=== PATIENT | male | born 1995 | race Two or more races ===

== ENCOUNTER 2018-04-26 11:59 | Emergency (ER) | payer SELFPAY ==
[2018-04-26 12:04] VITALS: BP 135/79; PULSE 112; TEMP 101; BMI 23.7
[2018-04-26] MEDS ORDERED: PENICILLIN G BENZATHINE 1,200,000 UNIT/2 ML PFS IM ONE (12:20)
[2018-04-26] MEDS ORDERED: DEXAMETHASONE LIQUID 0.5 MG/5 ML 240 ML BULK BOTTLE PO ONE (12:20)
--- NOTE | 2018-04-26 12:23 | PDOC ---
History of Present Illness - General Chief Complaint: Sore Throat Stated Complaint: SORE THROAT Time Seen by Provider: 04/26/18 12:08 - History of Present Illness Initial Comments: 04/26/18 12:20 22-year-old male without comorbidities presents for evaluation of fever and sore throat 2 days. Past History - Past Medical History Allergies/Adverse Reactions: Allergies Allergy/AdvReac Type Severity Reaction Status Date / Time No Known Allergies Allergy Verified 04/26/18 12:01 Home Medications: Ambulatory Orders No Home Medications 0 dose .ROUTE UTDICT 05/17/12 COPD: No - Immunization History Immunization Up to Date: Yes - Suicide/Smoking/Psychosocial Hx Smoking Status: No Smoking History: Current some day smoker Number of Cigarettes Smoked Daily: 0 Information on smoking cessation initiated: No Hx Alcohol Use: No Drug/Substance Use Hx: No Review of Systems - Review of Systems Constitutional: Yes: Fever HEENTM: Yes: Throat Pain, Difficulty Swallowing *Physical Exam - Vital Signs Last Vital Signs Temp Pulse Resp BP Pulse Ox 101 F H 112 H 18 135/79 98 04/26/18 12:01 04/26/18 12:01 04/26/18 12:01 04/26/18 12:01 04/26/18 12:01 - Physical Exam Comments: 04/26/18 12:21 HEAD: NC/AT EYES: Conjuntiva clear Ears: Canals and TM's normal NOSE: No d/c THROAT: Moist mucous membrances, oral pharanx erythematous with exudate, uvula midline NECK: Supple without adenopathy CARDIAC: S1 S2 LUNGS: CTA Full and Equal breath sounds ABDOMEN: Soft NT ND MS: Full ROM in all joints without edema NEUROLOGIC: No gross sensory or motor deficits, NVID SKIN: Normal color and temperature no lesions or rashes Moderate Sedation - Procedure Monitoring Vital Signs: Procedure Monitoring Vital Signs Temperature 101 F H 04/26/18 12:01 Pulse Rate 112 H 04/26/18 12:01 Respiratory Rate 18 04/26/18 12:01 Blood Pressure 135/79 04/26/18 12:01 O2 Sat by Pulse Oximetry (%) 98 04/26/18 12:01 *DC/Admit/Observation/Transfer Diagnosis at time of Disposition: Strep pharyngitis - Discharge Dispostion Disposition: HOME Condition at time of disposition: Stable Decision to Admit order: No - Referrals Referrals: Estefani Parker MD [Staff Physician] - - Patient Instructions Printed Discharge Instructions: Strep Throat, DI for Strep Throat Additional Instructions: Return to the emergency room for worsening of symptoms. Follow-up with internal medicine in one to 2 days for further evaluation and treatment options. Warm salt water gargles will help with her throat pain. Do not take any anti- inflammatory such as Advil Motrin Aleve or ibuprofen. He will given a dose of a long-acting steroid which should prevent the fever and help with her pain within the next day. He may take Tylenol as directed for fever and pain. - Post Discharge Activity
[2018-04-26] MEDS ORDERED: DEXAMETHASONE SOD PHOSPHATE 10 MG/1 ML VIAL ONE (12:25)
[2018-04-26] MEDS ORDERED: PENICILLIN G BENZATHINE 2,400,000 UNIT/4 ML PFS ONE (12:26)
[2018-04-26] MEDS ORDERED: ACETAMINOPHEN 500 MG TABLET (FP) PO ONE (12:29)
[2018-04-26] MEDS ORDERED: ACETAMINOPHEN 500 MG TABLET (FP) ONE (12:32)
== END 2018-04-26 13:02 | disposition home or self-care (01) ==
LOC: JERFT 11:59
DX: J02.0 Streptococcal pharyngitis (principal)
CPT/HCPCS: 99281-25

== ENCOUNTER 2019-03-03 13:11 | Emergency (ER) | payer OTHER ==
[2019-03-03 13:26] VITALS: BMI 23.7
[2019-03-03] MEDS ORDERED: IBUPROFEN 600 MG TABLET (FP) PO ONE ×2 (14:20→14:30)
--- NOTE | 2019-03-03 14:22 | PDOC ---
History of Present Illness - General Chief Complaint: Sore Throat Stated Complaint: HEADACHE/BODYACHES Time Seen by Provider: 03/03/19 13:52 History Source: Patient - History of Present Illness Initial Comments: 03/03/19 14:21 Chief complaint: Body aches and sore throat and cough Patient is a healthy 23-year-old male who awoke feeling body aches and feeling sick this morning with a little cough and also a little sore throat. Patient is not vomiting. Patient did not take any pain medicine this morning and the body aches seem a little better. GENERAL/CONSTITUTIONAL: No fever, weakness. dizziness HEAD, EYES, EARS, NOSE AND THROAT: No change in vision. No ear pain or discharge. + sore throat. CARDIOVASCULAR: No chest pain RESPIRATORY: No shortness of breath +cough GASTROINTESTINAL: No pain, nausea, vomiting, diarrhea or constipation GENITOURINARY: No dysuria MUSCULOSKELETAL: No neck or back pain SKIN: No rash NEUROLOGIC: No headache, vertigo, loss of consciousness, or loss of sensation. GENERAL: The patient is awake, alert, and fully oriented, in no acute distress. HEAD: Normal with no signs of trauma. EYES: Pupils equal, round and reactive to light, sclera anicteric, conjunctiva clear. ENT: pharynx: minimal erythema, no exudate, uvula midline NECK: supple CHEST: clear, nontender, rr ABD: soft, nontender BACK: no tenderness or signs of injury EXTREMITIES: Normal range of motion, no edema. NEUROLOGICAL: Normal speech, normal gait. SKIN: Warm, Dry 03/03/19 15:16 Past History - Past Medical History Allergies/Adverse Reactions: Allergies Allergy/AdvReac Type Severity Reaction Status Date / Time No Known Allergies Allergy Verified 03/03/19 13:26 Home Medications: Ambulatory Orders No Home Medications 0 dose .ROUTE UTDICT 05/17/12 COPD: No - Immunization History Immunization Up to Date: Yes - Psycho Social/Smoking Cessation Hx Smoking Status: No Smoking History: Never smoked Number of Cigarettes Smoked Daily: 0 Hx Alcohol Use: No Drug/Substance Use Hx: No *Physical Exam - Vital Signs Last Vital Signs Temp Pulse Resp BP Pulse Ox 100 F H 111 H 18 130/80 100 03/03/19 13:22 03/03/19 13:22 03/03/19 13:22 03/03/19 13:22 03/03/19 13:22 Medical Decision Making - Medical Decision Making 03/03/19 14:22 Well-appearing 23-year-old male without any significant medical problems with body aches since this morning, little cough and sore throat, patient does not require any labs. Will do flu swab and strep swab, give Motrin and reassess. 03/03/19 15:14 Flu and strep swabs are negative, will give supportive instructions Discussed issues, findings, results, applicable medications and treatments and follow-up. All these were understood and all questions were answered Discharge - Discharge Information Problems reviewed: Yes Clinical Impression/Diagnosis: Upper respiratory infection Qualifiers: URI type: unspecified URI Qualified Code(s): J06.9 - Acute upper respiratory infection, unspecified Condition: Stable Disposition: HOME - Admission No - Follow up/Referral Referrals: Marah Mackey MD [Primary Care Provider] - - Patient Discharge Instructions Patient Printed Discharge Instructions: DI for Viral Upper Respiratory Infection -- Adult Additional Instructions: Drink 2-3 L of water daily Take Tylenol 650 mg every 4 hours or Motrin 600 mg every 6 hours for fever and pain Return to the nearest ER if short of breath, unable to swallow or feeling sicker Followup with your doctor in one to 2 days - Post Discharge Activity
[2019-03-03 15:28] VITALS: BP 122/78; PULSE 89; TEMP 98.2
== END 2019-03-03 15:28 | disposition home or self-care (01) ==
LOC: JERFT 13:11
DX: J06.9 Acute upper respiratory infection, unspecified (principal)
CPT/HCPCS: 87070; 87804; 87880; 99281-25

== ENCOUNTER 2019-10-12 13:27 | Emergency (ER) | payer OTHER ==
[2019-10-12 13:32] VITALS: BMI 23.7
--- NOTE | 2019-10-12 13:35 | PDOC ---
History of Present Illness - General Chief Complaint: Pain Stated Complaint: ABD PAIN Time Seen by Provider: 10/12/19 13:34 - History of Present Illness Initial Comments: HPI Pt is a 23yo M with no significant PMH who presents with abdominal pain. Pt states that abdominal pain began this morning when he woke up. Pain is in left lower quadrant with mild pain in RLQ. Described as pulling and pushing with a burning sensation. 8/10 in severity, nonradiating. Reports nausea with 7 episodes of NBNB emesis. Has been unable to tolerate PO intake today. Had a bowel movement yesterday, has not had one today. Denies dysuria, but states increased frequency which he attributes to drinking more water. Denies prior episodes. Denies penile discharge. Is sexually active with women, uses condoms, states recent STI testing which was normal. Denies f/c, chest pain, SOB, diarrhea/constipation. PCP: denies PMH: denies PSH: denies Meds: denies Allergies: NKDA Social: uses hookah everyday, drinks 2 beers/day, denies illicit/recreational substance use Review of Systems CONSTITUTIONAL:denies fever, chills, diaphoresis, generalized weakness, malaise, loss of appetite HEENT:denies rhinorrhea, nasal congestion, sore throat, ear pain, eye pain, visual Changes CARDIOVASCULAR:denies chest pain, palpitations, irregular heart rate, lightheadedness, RESPIRATORY:denies cough, shortness of breath, wheezing, hemoptysis GASTROINTESTINAL: reports abdominal pain, nausea, vomiting; denies diarrhea, constipation, melena, hematochezia GENITOURINARY:reports increased frequency; denies dysuria, urgency, hesitancy, hematuria, flank pain, genital pain, denies penile discharge MUSCULOSKELETAL:denies myalgia, arthralgia, neck pain, back pain HEMATOLOGIC/IMMUNOLOGIC:denies easy bleeding, easy bruising NEUROLOGIC:denies headache, loss of consciousness, focal weakness or paresthesias, dizziness, unsteady gait, seizure, mental status changes, bladder or bowel incontinence SKIN:denies rash, itching, pallor Physical Exam General: awake, alert, oriented, in moderate distress, well developed, well nourished Head: normocephalic, atraumatic Eyes: PERRL, EOMI, anicteric sclera, conjunctiva clear ENT: Auricles normal inspection, hearing grossly normal, TMs clear bilaterally, nares patent, oropharynx clear without exudates. No nasal congestion Moist mucous membranes Neck: supple, normal ROM, no LAD, JVD or masses Lung: equal breath sounds b/l, CTA b/l, no crackles, wheezes; no distress, speaks full sentences Heart: RRR, normal S1, S2, no murmurs, rubs, gallops Abdomen: TTP in LLQ and RLQ; L CVA tenderness, normoactive bowel sounds; no guarding, rebound, masses Testicular exam: No penile discharge or lesions. No scrotal swelling or discoloration. Testes descended bilaterally, smooth, no masses. Epididymis nontender. No inguinal or femoral hernias. Extremities: normal ROM, no edema, no erythema or tenderness, DP/PT pulses 2+ and symmetric, no clubbing, cyanosis Neuro: CN2-12 grossly intact, moves all extremities, normal speech, sensation intact Skin: warm, dry, no rashes or lesions noted Past History - Medical History Allergies/Adverse Reactions: Allergies Allergy/AdvReac Type Severity Reaction Status Date / Time No Known Allergies Allergy Verified 10/12/19 13:29 Home Medications: Ambulatory Orders No Home Medications 0 dose .ROUTE UTDICT 05/17/12 COPD: No - Immunization History Immunization Up to Date: Yes - Psycho-Social/Smoking History Smoking Status: No Smoking History: Never smoked Have you smoked in the past 12 months: No Number of Cigarettes Smoked Daily: 0 Information on smoking cessation initiated: No - Substance Abuse Hx (Audit-C & DAST Scrn) How often the patient has a drink containing alcohol: Monthly or less Number of drinks the patient has on a typical day: 1 or 2 How often the patient has six or more drinks on one occasion: Less than monthly Score: In Men: 4 or > Positive; In Women: 3 or > Positive: 2 Screen Result (Pos requires Nsg. Audit-10AR): Negative In the last yr the pt used illegal drug/Rx for NonMed reason: No Score: Yes response is considered Positive: 0 Screen Result (Positive result requires Nsg. DAST-10): Negative *Physical Exam - Vital Signs Last Vital Signs Temp Pulse Resp BP Pulse Ox 97.8 F 75 20 123/80 100 10/12/19 13:30 10/12/19 13:30 10/12/19 13:30 10/12/19 13:30 10/12/19 13:30 ED Treatment Course - LABORATORY CBC & Chemistry Diagram: 10/12/19 14:20 10/12/19 14:20 Medical Decision Making - Medical Decision Making Pt is 23yo M with no significant PMH who presents with left lower abdominal pain x1 day. +L CVA tenderness Vital Signs Period Temp Pulse Resp BP Sys/Olsen Pulse Ox Last 24 Hr 97.8 F 75 20 123/80 100 DDx: pyelonephritis, nephrolithiasis Plan: labs, fluids, pain control Bedside ultrasound with mild L hydronephrosis. 10/12/19 15:04 States pain is improved; resting comfortably in bed. 10/12/19 15:43 Labs: leukocytosis, no anemia, electrolytes WNL, no BRYN, normal LFTs 10/12/19 16:17 UA with 3+ blood Laboratory Last Values WBC 16.6 K/mm3 (4.0-10.0) H 10/12/19 14:20 RBC 6.56 M/mm3 (4.00-5.60) H 10/12/19 14:20 Hgb 15.6 GM/dL (11.7-16.9) 10/12/19 14:20 Hct 48.7 % (35.4-49) 10/12/19 14:20 MCV 74.3 fl (80-96) L 10/12/19 14:20 MCH 23.8 pg (25.7-33.7) L 10/12/19 14:20 MCHC 32.1 g/dl (32.0-35.9) 10/12/19 14:20 RDW 15.2 % (11.9-15.9) 10/12/19 14:20 Plt Count 248 K/MM3 (134-434) 10/12/19 14:20 MPV 9.1 fl (7.5-11.1) 10/12/19 14:20 Absolute Neuts (auto) 14.9 K/mm3 (1.5-8.0) H 10/12/19 14:20 Neutrophils % 89.5 % (42.8-82.8) H 10/12/19 14:20 Lymphocytes % 6.1 % (8-40) L 10/12/19 14:20 Monocytes % 4.2 % (3.8-10.2) 10/12/19 14:20 Eosinophils % 0.1 % (0-4.5) 10/12/19 14:20 Basophils % 0.1 % (0-2.0) 10/12/19 14:20 Nucleated RBC % 0 % (0-0) 10/12/19 14:20 Sodium 139 mmol/L (136-145) 10/12/19 14:20 Potassium 4.1 mmol/L (3.5-5.1) 10/12/19 14:20 Chloride 104 mmol/L (98-107) 10/12/19 14:20 Carbon Dioxide 26 mmol/L (21-32) 10/12/19 14:20 Anion Gap 9 MMOL/L (8-16) 10/12/19 14:20 BUN 13.3 mg/dL (7-18) 10/12/19 14:20 Creatinine 1.1 mg/dL (0.55-1.3) 10/12/19 14:20 Est GFR (CKD-EPI)AfAm 108.32 10/12/19 14:20 Est GFR (CKD-EPI)NonAf 93.46 10/12/19 14:20 Random Glucose 100 mg/dL (74-106) 10/12/19 14:20 Calcium 9.6 mg/dL (8.5-10.1) 10/12/19 14:20 Total Bilirubin 0.3 mg/dL (0.2-1) 10/12/19 14:20 AST 19 U/L (15-37) 10/12/19 14:20 ALT 20 U/L (13-61) 10/12/19 14:20 Alkaline Phosphatase 69 U/L (45-117) 10/12/19 14:20 Total Protein 8.3 g/dl (6.4-8.2) H 10/12/19 14:20 Albumin 4.4 g/dl (3.4-5.0) 10/12/19 14:20 Urine Color Yellow 10/12/19 15:24 Urine Appearance Clear 10/12/19 15:24 Urine pH 5.5 (5.0-8.0) 10/12/19 15:24 Ur Specific [place] 1.027 (1.010-1.035) 10/12/19 15:24 Urine Protein Negative (NEGATIVE) 10/12/19 15:24 Urine Glucose (UA) Negative (NEGATIVE) 10/12/19 15:24 Urine Ketones Trace (NEGATIVE) H 10/12/19 15:24 Urine Blood 3+ (NEGATIVE) H 10/12/19 15:24 Urine Nitrite Negative (NEGATIVE) 10/12/19 15:24 Urine Bilirubin Negative (NEGATIVE) 10/12/19 15:24 Urine Urobilinogen 1.0 mg/dL (0.2-1.0) 10/12/19 15:24 Ur Leukocyte Esterase Negative (NEGATIVE) 10/12/19 15:24 Urine WBC (Auto) 6 /uL (0-25.8) 10/12/19 15:24 Urine RBC (Auto) 321 /uL (0-23.9) 10/12/19 15:24 Urine Casts (Auto) 1 /uL (0-3.1) 10/12/19 15:24 U Epithel Cells (Auto) 4 /uL (0-25.1) 10/12/19 15:24 Urine Bacteria (Auto) 33 /uL (0-1359) 10/12/19 15:[address]: 2mm stone in intraluminal bladder, mild hydroureteronephrosis at UVJ Patient stable for discharge. Tolerating PO, pain controlled. Informed of all lab and imaging results. Given follow up instructions and strict return precautions. Patient expressed understanding and agree to plan Disposition Discharge to home Discharge - Discharge Information Problems reviewed: Yes Clinical Impression/Diagnosis: Nephrolithiasis Condition: Stable Disposition: HOME - Admission No - Follow up/Referral Referrals: Migue Hammond MD [Staff Physician] - - Patient Discharge Instructions Patient Printed Discharge Instructions: Kidney Stones -- Adult Additional Instructions: Discharge Instructions: You were seen in the emergency department for abdominal pain, and you were found to have a kidney stone. You had a CT scan to confirm this, and the stone was found to be 2 mm in size and located in the bladder. This indicates that the stone will most likely pass on its own. Home Care: - You may use over the counter pain medications such as ibuprofen (Motrin) 600mg every 4-6 hours as needed for pain. If you have continued pain, you may alternate this medication with acetaminophen (Tylenol) 2 (325mg) tablets every 8 hours. - Make sure you are drinking plenty of fluids to help pass the kidney stone Follow Up: - Follow up with your primary care doctor within the next 1-2 weeks. - You have been referred to a urologist for follow up, Dr. Hammond. You should make an appointment within the next week, especially if your symptoms do not resolve over the next few days. - Seek immediate medical care if you have worsening of your symptoms, you do not pass the stone within 3-4 days, you stop making urine entirely, you have noticeable blood in your urine, you develop fevers to 101F, or you have any medical emergency. Thank you for coming to [facility]. We hope you feel better soon! - Post Discharge Activity
[2019-10-12] MEDS ORDERED: ACETAMINOPHEN 1000 MG/100 ML VIAL (NON FORMULARY) IVPB ONE (14:00)
[2019-10-12] MEDS ORDERED: LACTATED RINGERS SOLUTION 1000 ML INFUS.BAG IV ONE (14:00)
--- NOTE | 2019-10-12 14:00 | PDOC ---
Attending Attestation - Resident Resident Name: Aleyda Bernal - ED Attending Attestation I have performed the following: I have examined & evaluated the patient, The case was reviewed & discussed with the resident, I agree w/resident's findings & plan, Exceptions are as noted - HPI HPI: 10/12/19 14:02 23y M no pmhx presents with complaint o sudden onset of LLQ pain radiating to the groin starting this morning. Patient states that the onset of pain was sudden and severe associated with several episodes of nonbilious nonbloody vomiting, the pain was relatively constant however it did improve slightly a couple of times. Patient denies any fever, chills, dysuria, hematuria, penile discharge, chest pain, shortness of breath. Patient denies any prior similar episodes of pain. - Physicial Exam PE: 10/12/19 15:25 GENERAL: The patient is awake, alert, and fully oriented, Nontoxic - in no acute distress. LUNGS: Breath sounds equal, clear to auscultation bilaterally. No wheezes, no rhonchi, no rales. HEART: Regular rate and rhythm, normal S1 and S2 without murmur, rub or gallop. ABDOMEN: Soft, Mild left lower quadrant tenderness, no CVA tenderness, No guarding, no rebound. exam per dr. bernal - Medical Decision Making 10/12/19 15:26 Suspect kidney stones, will obtain UA to rule out UTI, GC chlamydia The patient's blood work noted for leukocytosis may be reactive secondary to pain Patient feeling better with analgesia 10/12/19 17:39 Patient feels improved he is completely pain-free. The patient's CT noted for a 2 mm stone likely in the bladder. Will discharge patient to follow-up with outpatient Discharge - Discharge Information Problems reviewed: Yes Clinical Impression/Diagnosis: Nephrolithiasis Condition: Stable Disposition: HOME - Additional Discharge Information Prescriptions: Azithromycin 1,000 mg PO ONCE #4 tablet - Follow up/Referral Referrals: Migue Hammond MD [Staff Physician] - - Patient Discharge Instructions Patient Printed Discharge Instructions: Kidney Stones -- Adult Additional Instructions: Discharge Instructions: You were seen in the emergency department for abdominal pain, and you were found to have a kidney stone. You had a CT scan to confirm this, and the stone was found to be 2 mm in size and located in the bladder. This indicates that the stone will most likely pass on its own. Home Care: - You may use over the counter pain medications such as ibuprofen (Motrin) 600mg every 4-6 hours as needed for pain. If you have continued pain, you may alternate this medication with acetaminophen (Tylenol) 2 (325mg) tablets every 8 hours. - Make sure you are drinking plenty of fluids to help pass the kidney stone Follow Up: - Follow up with your primary care doctor within the next 1-2 weeks. - You have been referred to a urologist for follow up, Dr. Hammond. You should make an appointment within the next week, especially if your symptoms do not resolve over the next few days. - Seek immediate medical care if you have worsening of your symptoms, you do not pass the stone within 3-4 days, you stop making urine entirely, you have noticeable blood in your urine, you develop fevers to 101F, or you have any medical emergency. Thank you for coming to [facility]. We hope you feel better soon! - Post Discharge Activity
[2019-10-12] MEDS ORDERED: ACETAMINOPHEN INJECTION 100 ML IVPB ONE (14:12)
[2019-10-12 14:58] LABS: BASO % 0.1 % (0-2.0); EOS % 0.1 % (0-4.5); HEMATOCRIT 48.7 % (35.4-49); HEMOGLOBIN 15.6 GM/dL (11.7-16.9); LYMPH % 6.1 % (8-40); MCH 23.8 pg (25.7-33.7); MCHC 32.1 g/dl (32.0-35.9); MEAN CELL VOLUME 74.3 fl (80-96); MEAN PLT VOLUME 9.1 fl (7.5-11.1); MONO % 4.2 % (3.8-10.2); NEUT % 89.5 % (42.8-82.8); PLATELET COUNT 248 K/MM3 (134-434); RBC 6.56 M/mm3 (4.00-5.60); RDW 15.2 % (11.9-15.9); WHITE BLOOD COUNT 16.6 K/mm3 (4.0-10.0)
[2019-10-12 15:24] LABS: ALBUMIN 4.4 g/dl (3.4-5.0); BILIRUBIN,TOTAL 0.3 mg/dL (0.2-1); BLOOD UREA NITROGEN 13.3 mg/dL (7-18); CALCIUM 9.6 mg/dL (8.5-10.1); CREATININE 1.1 mg/dL (0.55-1.3); POTASSIUM 4.1 mmol/L (3.5-5.1); TOT PROT 8.3 g/dl (6.4-8.2)
[2019-10-12 16:08] LABS: EPI CELLS 4 /uL (0-25.1); HYALINE CASTS 1 /uL (0-3.1); PH,URINE 5.5 (5.0-8.0); URINE APPEARANCE CLEAR; URINE BACTERIA 33 /uL (0-1359); URINE BILIRUBIN NEGATIVE (NEGATIVE); URINE COLOR YELLOW; URINE GLUCOSE (UA) NEGATIVE (NEGATIVE); URINE KETONE TRACE (NEGATIVE); URINE LEUK ESTERASE NEGATIVE (NEGATIVE); URINE NITRITE NEGATIVE (NEGATIVE); URINE PROTEIN NEGATIVE (NEGATIVE); URINE RBC 321 /uL (0-23.9); URINE WBC 6 /uL (0-25.8)
[2019-10-12 17:59] VITALS: BP 125/75; PULSE 80; TEMP 98.7
== END 2019-10-12 17:30 | disposition home or self-care (01) ==
LOC: JER 13:27
PROC: 3E033NZ Introduction of Analgesics, Hypnotics, Sedatives into Peripheral Vein, Percutaneous Approach (ICD-10-PCS; principal; 2019-10-12)
DX: N20.0 Calculus of kidney (principal)
CPT/HCPCS: 36415; 74176-TC; 80053; 81003; 85025; 87086; 87491; 87591; 99284-25; J0131